=== PATIENT | male | born 1965 ===

== ENCOUNTER 2020-01-08 18:51 | Outpatient (REF) | payer BC, SELFPAY ==
[2020-01-08 20:36] LABS: BUN 16 mg/dL (7-18); CREATININE 0.85 mg/dL (0.70-1.30); Calcium 9.4 mg/dL (8.5-10.1); Calculated LDL 134 mg/dL (<100); Chloride 100 mmol/L (98-107); Cholesterol 197 mg/dL (<200); Glucose 86 mg/dL (74-106); HDL Cholesterol 39 mg/dL (40-60); Potassium 3.7 mmol/L (3.5-5.1); Sodium 139 mmol/L (136-145); Triglyceride 121 mg/dL (<150)
[2020-01-08 21:11] LABS: Hemoglobin A1C 5.4 % (3.8-5.6)
[2020-01-08 22:30] LABS: COMMENT (LAB VIEW ONLY) 65.29 mg/dL; Microalb ug/mg Crea 9.5 ug/mg Cr
== END 2020-01-08 19:11 ==
LOC: NCHCN 18:51
PROVIDERS: Visit Provider Nurse Practitioner Family
DX: E11.9 Type 2 diabetes mellitus without complications (principal); I10 Essential (primary) hypertension; E78.5 Hyperlipidemia, unspecified
CPT/HCPCS: 80048; 80061; 82043; 82570; 83036

== ENCOUNTER 2021-04-28 09:42 | Outpatient (REF) | payer BC, SELFPAY ==
[2021-04-28 20:49] LABS: COMMENT (LAB VIEW ONLY) 76.67 mg/dL; Microalb ug/mg Crea 6.4 ug/mg Cr
== END 2021-04-28 09:43 | disposition home or self-care (01) ==
LOC: NCHCN 09:42
PROVIDERS: Visit Provider Nurse Practitioner Family
DX: E11.9 Type 2 diabetes mellitus without complications (principal)
CPT/HCPCS: 82043; 82570

== ENCOUNTER 2021-12-30 17:04 | Outpatient (REF) | payer BC, SELFPAY ==
[2021-12-30 20:42] LABS: ALT 33 U/L (16-63); AST 16 U/L (15-37); Albumin 4.2 g/dL (3.4-5.0); Alkaline Phosphatase 132 U/L (46-116); Anion Gap 7.8 mmol/L (3-11); BUN 19 mg/dL (7-18); Bilirubin, Total 0.5 mg/dL (0.2-1.0); CO2 29.2 mmol/L (21.0-32.0); CREATININE 1.3 mg/dL (0.70-1.30); Chloride 94 mmol/L (98-107); Glucose 434 mg/dL (74-106); Potassium 3.6 mmol/L (3.5-5.1); Sodium 131 mmol/L (136-145); Total Protein 7.7 g/dL (6.4-8.2)
[2021-12-30 21:30] LABS: Hemoglobin A1C 10.8 % (<5.7)
== END 2021-12-30 17:05 | disposition home or self-care (01) ==
LOC: NCHCN 17:04
PROVIDERS: Visit Provider Nurse Practitioner Family
DX: E11.9 Type 2 diabetes mellitus without complications (principal); K76.0 Fatty (change of) liver, not elsewhere classified
CPT/HCPCS: 80053; 83036

== ENCOUNTER 2022-06-10 14:48 | Outpatient (REF) | payer BC, SELFPAY ==
[2022-06-10 19:37] LABS: ALT 31 U/L (16-63); AST 24 U/L (15-37); Albumin 4.3 g/dL (3.4-5.0); Alkaline Phosphatase 58 U/L (46-116); BUN 16 mg/dL (7-18); Bilirubin, Total 0.5 mg/dL (0.2-1.0); CREATININE 0.9 mg/dL (0.70-1.30); Calcium 9.3 mg/dL (8.5-10.1); Calculated LDL 105 mg/dL (<100); Chloride 101 mmol/L (98-107); Cholesterol 171 mg/dL (<200); Glucose 85 mg/dL (74-106); HDL Cholesterol 40 mg/dL (40-60); Potassium 3.9 mmol/L (3.5-5.1); Sodium 137 mmol/L (136-145); Total Protein 7.5 g/dL (6.4-8.2); Triglyceride 133 mg/dL (<150)
== END 2022-06-10 14:49 | disposition home or self-care (01) ==
LOC: NCHCN 14:48
PROVIDERS: Visit Provider Nurse Practitioner Family
DX: E11.9 Type 2 diabetes mellitus without complications (principal); I10 Essential (primary) hypertension; E78.5 Hyperlipidemia, unspecified
CPT/HCPCS: 80053; 80061